=== PATIENT | female | born 2000 | race Hispanic/Latino ===

== ENCOUNTER 2021-08-26 21:18 | Emergency (ER) | payer SELFPAY ==
--- NOTE | ~2021-08-26 | CT_ITS ---
EXAMINATION: CT abdomen pelvis w con DATE: 08/27/2021 01:17 INDICATION: Gastric abdominal pain. TECHNIQUE: Computed tomography (CT) of the abdomen and pelvis was performed with 100 mL Omnipaque-350 intravenous contrast. Automated exposure control and iterative reconstruction technique were employe d. The dose-length product was 309.18 mGy-cm. COMPARISON: None FINDINGS: Lung bases are clear. Heart size is normal. No pericardial or pleural effusion. Diffuse hepatic steat osis. Gallbladder, spleen, pancreas, bilateral adrenal glands and kidneys are normal. Bowels includin g the appendix are normal. Small fat-containing umbilical hernia. Uterus and bilateral adnexa are nor mal. There is diffuse mild bladder wall thickening likely due to decompressed state. No free intraper itoneal gas or fluid. No pathologically enlarged abdominal or pelvic lymphadenopathy. Bones are unrem arkable. IMPRESSION: 1. No acute intra-abdominal/pelvic process. 2. Diffuse hepatic steatosis. 3. Small fat-containing umbilical hernia. Reviewed, dictated and finalized at location A.
[2021-08-26 21:21] VITALS: BP 124/77; PULSE 89; RESP 18; TEMP 36.6; O2SAT 100
[2021-08-26 21:43] LABS: Basophils Percent Auto 0.4 % (0.2-1.2); Eosinophils Absolute Auto 0.3 K/mm3 (0-0.3); Eosinophils Percent Auto 3.1 % (0-4.4); Hematocrit 40.8 % (37.0-47.0); Hemoglobin 14.1 g/dL (12.0-15.0); Immature Granulocyte Absolute 0.03 K/mm3 (0.00-0.031); Immature Granulocyte Percent A 0.3 % (0-0.5); Lymphocytes Absolute Auto 2.93 K/mm3 (0.9-3.2); Lymphocytes Percent Auto 29.4 % (18.3-44.2); Mean Corpuscular HGB Conc 34.6 g/dl (32-36); Mean Corpuscular Hemoglobin 31.2 pg (26-34); Mean Corpuscular Volume 90.3 fl (80-100); Mean Platelet Volume 8.9 fl (7.4-10.4); Monocytes Absolute Auto 0.5 K/mm3 (0.1-0.6); Monocytes Percent Auto 4.9 % (2.6-8.5); Neutrophils Absolute Auto 6.2 K/mm3 (1.3-6.7); Neutrophils Percent Auto 61.9 % (45.5-73.1); Platelet Count Result 333 k/mm3 (150-375); Red Blood Count 4.52 M/mm3 (4.2-5.4); Red Cell Distribution Width 12.2 % (11.5-14.5)
[2021-08-26 21:52] LABS: Alanine Aminotransferase 131 U/L (4-35); Albumin Level 4.9 g/dL (3.5-5.1); Alkaline Phosphatase 91 U/L (38-126); Anion Gap 7 mmol/L (8-16); Aspartate Amino Transferase 50 U/L (14-36); Bilirubin,Total 0.6 mg/dL (0.2-1.3); Blood Urea Nitrogen 10 mg/dL (7-17); Calcium 9.8 mg/dL (8.4-10.2); Carbon Dioxide 22 mmol/L (22-30); Chloride 108 mmol/L (98-107); Estimated CRCL calculation 106 ml/min; Estimated Glomerular Filt Rate > 60; Glucose 114 mg/dL (65-110); Lipase 79 U/L (23-300); Potassium 3.5 mmol/L (3.4-5.0); Sodium 137 mmol/L (137-145)
[2021-08-26 23:26] VITALS: BP 119/73; PULSE 82; RESP 16; O2SAT 100
[2021-08-26 23:39] VITALS: BP 111/77; PULSE 87; TEMP 37.1; O2SAT 99
[2021-08-27] MEDS: ONDANSETRON INJ 4 MG/2 ML VIAL IV PUSH (00:40)
[2021-08-27] MEDS: SODIUM CHLORIDE 0.9% IV 1,000 ML 999 ML IV CONT ×2 (00:40→02:03)
[2021-08-27 00:49] LABS: Add Urine Microscopic? YES; Appearance Urine Clear (Clear); Bilirubin Urine Negative (Negative); Blood Urine Negative (Negative); Color Urine Yellow (Yellow); Glucose Urine UA Negative (Negative); Ketones Urine Trace mg/dL (Negative); Leukocyte Esterase Ur Negative LEU/UL (Negative); Mucus Urine Rare /lpf; Nitrate Urine Negative (Negative); Protein Urine Negative (Negative); RBC Urine 0-2 /hpf (0-2); Specific Grav Ur 1.017 (1.001-1.035); Squamous Epithelial Cell Urine Few /hpf (Few); Urobilinogen Urine Negative mg/dL (<2.0); WBC Urine 0-3 /hpf
[2021-08-27] MEDS: diphenhydrAMINE HCl INJ 50 MG/ML VIAL 12.5 MG IV PUSH (02:04)
[2021-08-27] MEDS: BELLADONNA ALK/PHENOB ELIX 10 ML, MAG HYDROX/ALUMINUM HYD/SIMETH 30 ML, LIDOCAINE HCL 2... PO (02:05)
[2021-08-27] MEDS: KETOROLAC 30 MG/ML VIAL (*BKC) IV PUSH (02:14)
[2021-08-27] MEDS: METOCLOPRAMIDE HCL INJ 10 MG/2 ML VIAL IV PUSH (02:15)
--- NOTE | 2021-08-27 02:43 | ED.ABDPAIN ---
HPI - Abdominal Pain General Chief Complaint: Abdominal Pain Stated Complaint: abd. pain, headache Time Seen by Provider: 08/26/21 23:31 Source: patient Mode of arrival: ambulatory Limitations: no limitations History of Present Illness HPI narrative: 21-year-old female presents today with complaints of epigastric pain and headache that started at 5:00. Patient states she has only been eating 1-2 meals a day is with nausea. Denies change , denies vomiting, chills, fever, or urinary symptoms. Patient denies shortness of breath, chest pain, or any recent travel. Patient states she does intake a lot of caffeine, spicy foods. Related Data Allergies Allergy/AdvReac Type Severity Reaction Status Date / Time ampicillin Allergy Nausea Verified 08/26/21 21:28 Review of Systems Review of Systems: CONSTITUTIONAL: Denies fever, chills, or sweats. EYES: Denies visual changes, redness, or discharge. ENT: Denies rhinorrhea, congestion, sore throat, or otalgia. CARDIOVASCULAR: Denies chest pain, palpitations, or edema. RESPIRATORY: Denies cough or dyspnea. GASTROINTESTINAL: Abdominal pain with nausea. Denies vomiting, or diarrhea. GENITOURINARY: Denies dysuria or hematuria. SKIN: Denies rash or itching. MUSCULOSKELETAL: Denies back pain, joint pain, or myalgia. NEUROLOGIC: Headache. Denies numbness, dizziness, or weakness. PSYCHIATRIC: Denies anxiety or depression. Exam Narrative: GENERAL: Well-appearing, well-nourished, and in no acute distress. HEAD: Normocephalic, atraumatic. EYES: PERRLA and EOMI. ENT: Nares clear, no rhinorrhea or epistaxis. Mucous membranes moist. Oropharynx without tonsillar hypertrophy exudate or other lesions. Bilateral TMs pearly escalera nonbulging NECK: Supple. No adenopathy or masses. No carotid bruits or JVD CHEST: Clear to auscultation. No respiratory distress. No wheezes rales or rhonchi HEART: Regular rate and rhythm. No murmur heard. Normal peripheral pulses. ABDOMEN: Soft, nontender, nondistended, normal active bowel sounds. EXTREMITIES: Normal range of motion. No edema. SKIN: Warm, dry, no rash. NEURO: No focal deficits. Alert and oriented x3. PSYCH: Normal mood and affect. Course Course Emergency Course: Patient noted improvement after medication. Patient denies any epigastric pain or headache at this time. Shift Supervisor Melting used patient aware of results. Patient to be discharged home with plan follow-up with primary. Patient states she understands plan of care. Vital Signs Vital signs: Vital Signs Temperature 36.6 C 08/26/21 21:21 Pulse Rate 89 08/26/21 21:21 Respiratory Rate 18 08/26/21 21:21 Blood Pressure 124/77 08/26/21 21:21 Pulse Oximetry 100 08/26/21 21:21 Temperature 36.4 C L 08/27/21 03:11 Pulse Rate 88 08/27/21 03:11 Respiratory Rate 18 08/27/21 03:11 Blood Pressure 113/60 08/27/21 03:11 Pulse Oximetry 98 08/27/21 03:08 MDM - Abdominal Pain Differential Diagnosis Differential diagnosis: Likely abdominal pain, constipation, gastroenteritis and other Medical Records Attestation: I reviewed the patient's medical records. Lab Data Attestation: I reviewed the patient's lab results. Result diagrams: 08/26/21 21:36 08/26/21 21:36 Labs: Lab Results 08/26/21 08/26/21 08/27/21 Range/Units 21:36 21:36 00:37 WBC 10.0 (4.5-10.0) K/mm3 RBC 4.52 (4.2-5.4) M/mm3 Hgb 14.1 (12.0-15.0) g/dL Hct 40.8 (37.0-47.0) % MCV 90.3 (80-100) fl MCH 31.2 (26-34) pg MCHC 34.6 (32-36) g/dl RDW 12.2 (11.5-14.5) % Plt Count 333 (150-375) k/mm3 MPV 8.9 (7.4-10.4) fl Immature Gran % (Auto) 0.3 (0-0.5) % Neut % (Auto) 61.9 (45.5-73.1) % Lymph % (Auto) 29.4 (18.3-44.2) % [place] % (Auto) 4.9 (2.6-8.5) % Eos % (Auto) 3.1 (0-4.4) % Baso % (Auto) 0.4 (0.2-1.2) % Lymph # (Auto) 2.93 (0.9-3.2) K/mm3 [place] # (Auto) 0.5 (0.1-0.6) K/mm3 Eos # (Auto) 0.3
[2021-08-27 03:08] VITALS: BP 113/60; PULSE 88; RESP 18; TEMP 36.4; O2SAT 98
[2021-08-27 03:11] VITALS: BP 113/60; PULSE 88; RESP 18; TEMP 36.4
--- NOTE | 2021-08-31 09:27 | PC.NURSE ---
LATE ENTRY This note is being entered to document information to the patient's record. The following information was omitted on [08/27/21], by [Alfredo SUAZO]. Ns #1 bag stopped at 0130. NS #2 bag stopped at 0300.
== END 2021-08-27 03:16 | disposition home or self-care (01) ==
PROVIDERS: Emergency Medicine; Emergency Provider Nurse Practitioner Family
DX: K76.0 Fatty (change of) liver, not elsewhere classified (principal); K21.9 Gastro-esophageal reflux disease without esophagitis; R51.9 Headache, unspecified
CPT/HCPCS: 36415; 74177; 80053; 81001; 81025; 83690; 85025; 96361; 96374; 96375; 99284; A9270; J1200; J1885; J2405; J2765; J7030; Q9967